=== PATIENT | female | born 2000 | race Caucasian/White ===

== ENCOUNTER 2020-12-19 07:12 | Emergency (ER) | payer OTHER ==
[~2020-12-19] VITALS: Ht 167.6 cm; Wt 63.5 kg
[2020-12-19 07:15] VITALS: BP 111/62
[2020-12-19] MEDS ORDERED: KETOROLAC 15 MG/ML VIAL IVP ONE (07:30)
[2020-12-19] MEDS ORDERED: ONDANSETRON 4 MG/2 ML VIAL IVP ONE (07:30)
--- NOTE | 2020-12-19 07:45 | NUR ---
20/F presents to ED with c/o acute onset abdominal pain since midnight. Patient states pain momentarily went away and she was able to fall asleep, stating she woke up at 4am with the pain again, stating 6/10 throbbing pain in all quadrants, worse in RLQ. Report 3 episodes of vomiting since 4am. Denies taking anything at home for pain or nausea, denies diarrhea, chest pain, sob, denies fever, chills or urinary symptoms.
[2020-12-19 08:14] LABS: BASOPHILS % (AUTO) 0.1 % (0.0-2.0); EOSINOPHILS % (AUTO) 0.1 % (0.0-4.0); HEMOGLOBIN 13.6 g/dL (12.0-16.0); LYMPHOCYTES # (AUTO) 0.9 K/uL (2.5-16.5); MEAN CORPUSCULAR HEMOGLOBIN 33 pg (27-31); MEAN CORPUSCULAR HGB CONC 34 g/dL (33-37); MEAN CORPUSCULAR VOLUME 98.3 fL (80-94); MONOCYTES # (AUTO) 1.1 K/uL (0.8-1.0); MONOCYTES % (AUTO) 11.3 % (1.7-9.3); NEUTROPHILS % (AUTO) 79.5 % (42.2-75.2); PLATELET COUNT (AUTO) 259 K/uL (140-450); RED BLOOD CELL COUNT(AUTO) 4.06 MIL/uL (4.20-5.40); RED CELL DISTRIBUTION WIDTH 12.7 % (11.6-13.7); WHITE BLOOD COUNT (AUTO) 10.1 K/uL (4.5-11.0)
[2020-12-19 08:24] LABS: APPEARANCE,URINE CLEAR (CLEAR); BILIRUBIN,URINE NEGATIVE (NEGATIVE); BLOOD, URINE NEGATIVE (NEGATIVE); COLOR,URINE YELLOW (YELLOW); LEUKOCYTE ESTERASE ,URINE TRACE (NEGATIVE); NITRITE, URINE NEGATIVE (NEGATIVE); PH,URINE 5.5 (5.0-9.0); UGLUCOSE NEGATIVE (NEGATIVE)
[2020-12-19 08:41] LABS: RBC,URINE 0-5 /HPF (0-5); WBC,URINE 0-5 /HPF (0-5)
--- NOTE | 2020-12-19 09:30 | NUR ---
Patient appears to be resting, stating improvement in pain. On bedside threat monitoring analyst, VSS.
[2020-12-19 09:50] LABS: ANION GAP 15.7 (8-16); CARBON DIOXIDE 24.1 mmol/L (21-32); POTASSIUM 3.8 mmol/L (3.5-5.1)
[2020-12-19 09:58] LABS: ALBUMIN 4.6 g/dL (3.4-5.0); TOTAL BILIRUBIN 0.4 mg/dL (0.0-1.0)
--- NOTE | 2020-12-19 10:21 | NUR ---
Patient taken to CT via w/c.
--- NOTE | 2020-12-19 10:31 | NUR ---
Patient returned from CT.
--- NOTE | 2020-12-19 11:48 | NUR ---
Patient appears to be resting, friend at bedside. Patient on bedside monitor, VSS, all needs met at this time.
[2020-12-19] MEDS ORDERED: ONDA-24 PO (13:28)
[2020-12-19] MEDS ORDERED: MIRABULK PO (13:28)
[2020-12-19] MEDS ORDERED: IBUP-2213 PO (13:28)
[2020-12-19 13:51] VITALS: BP 118/68
--- NOTE | 2020-12-19 13:52 | NUR ---
Patient discharged with v/s stable. Written and verbal after care instructions given and explained. Patient alert, oriented and verbalized understanding of instructions. Ambulatory with steady gait. All questions addressed prior to discharge. ID band removed. Patient advised to follow up with PMD. Rx of MIRALAX, MOTRIN, ZOFRAN given. Patient educated on indication of medication including possible reaction and side effects. Opportunity to ask questions provided and answered.
== END 2020-12-19 13:52 | disposition home or self-care (01) ==
LOC: MED 07:12
DX: R10.9 Unspecified abdominal pain (principal); R63.0 Anorexia; F17.200 Nicotine dependence, unspecified, uncomplicated
CPT/HCPCS: 36415; 74177; 76705; 76830; 80053; 81001; 81025; 85025; 93976; 96374; 96375; 99285; J1885; J2405; Q9967; Q0092